=== PATIENT | female | born 2005 | race Caucasian/White ===

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

== ENCOUNTER 2023-02-12 09:25 | Emergency (ER) | payer OTHER, SELFPAY ==
--- NOTE | 2023-02-12 11:21 | PC.NURSE ---
patient left waiting room without seeing a provider. advised to return if needed
== END 2023-02-12 11:30 | disposition left against medical advice (07) ==
LOC: ANHED 11:27
DX: R11.2 Nausea with vomiting, unspecified (principal)
CPT/HCPCS: 99199

== ENCOUNTER 2023-08-08 15:26 | Emergency (ER) | payer OTHER, SELFPAY ==
[2023-08-08 15:44] VITALS: BP 138/84; PULSE 96; RESP 16; TEMP 36.6; O2SAT 100
--- NOTE | 2023-08-08 16:15 | ED.FEMALEGU ---
HPI - Female Genitourinary General Chief complaint: Urogenital-Female Stated complaint: Left side back pain Time Seen by Provider: 08/08/23 16:10 Source: patient and RN notes reviewed Mode of arrival: ambulatory Limitations: no limitations History of Present Illness HPI Narrative: Patient presents today complaining of a 2 day history of dysuria, frequency, and voiding small amounts, with left flank pain that started this morning. No [id number] treatment prior to arrival. Related Data Home Medications Medication Instructions Recorded Confirmed sertraline 50 mg tablet 50 mg PO DIRECTED 08/08/23 08/08/23 Allergies Allergy/AdvReac Type Severity Reaction Status Date / Time latex Allergy Unknown Verified 08/08/23 15:40 BLUE CHEESE Allergy Mild RED FACE Uncoded 08/08/23 15:40 Review of Systems Review of Systems: CONSTITUTIONAL: Denies body aches, fever, chills, or sweats. EYES: Denies visual changes, redness, or discharge. ENT: Denies rhinorrhea, congestion, sore throat, or otalgia. CARDIOVASCULAR: Denies chest pain, palpitations, or edema. RESPIRATORY: Denies cough or dyspnea. GASTROINTESTINAL: Denies abdominal pain, nausea, vomiting, or diarrhea. GENITOURINARY: + dysuria, frequency, voiding small amounts, left flank pain SKIN: Denies rash, itching, or wounds. MUSCULOSKELETAL: Denies back pain, joint pain, or myalgia. NEUROLOGIC: Denies headache, numbness, tingling, or weakness. PSYCH: Denies depression or anxiety. [facility] Past Medical History Medical History Migraine Surgical History Surgical History Hx of tonsillectomy Social History Social History Smoking status: Never smoker Second hand tobacco smoke exposure: No Alcohol intake: never Substance use: never Gender identity (if verbalized by the patient): Female Spiritual care concerns: No Comments At time of signature, I have reviewed and agree with nursing past medical, surgical, social and family history unless otherwise noted. Please see nursing chart for further information. There is no relevant family history pertinent to the presenting complaint Exam Narrative: GENERAL: Well-appearing, well-nourished, and in no acute distress. HEAD: Normocephalic, atraumatic. EYES: EOMI. No redness or drainage. Conjunctivae normal. ENT: Mucous membranes pink and moist. NECK: Normal AROM. CHEST: No respiratory distress. Clear to auscultation. HEART: Regular rate and rhythm. No murmur appreciated. Normal peripheral pulses. ABDOMEN: Soft, nontender, nondistended, normal active bowel sounds. + mild left CVAT EXTREMITIES: Normal range of motion. No edema. SKIN: Warm, dry, no rash. Capillary refill normal. Normal skin turgor. NEURO: No focal deficits. Alert and oriented x3. Gait steady. PSYCH: Normal affect. No signs of depression or anxiety. Course Course Level of Care: Express Care Visit Vital Signs Vital signs: Vital Signs Temperature 97.8 F 08/08/23 15:44 Pulse Rate 96 08/08/23 15:44 Respiratory Rate 16 08/08/23 15:44 Blood Pressure 138/84 08/08/23 15:44 Pulse Oximetry 100 08/08/23 15:44 Oxygen Delivery Room Air 08/08/23 15:44 Temperature 97.8 F 08/08/23 15:44 Pulse Rate 96 08/08/23 15:44 Respiratory Rate 16 08/08/23 15:44 Blood Pressure 138/84 08/08/23 15:44 Pulse Oximetry 100 08/08/23 15:44 Oxygen Delivery Room Air 08/08/23 15:44 Reviewed MDM - Female Genitourinary MDM Narrative Medical decision making narrative: Urinalysis is consistent with UTI. Prescription for Cipro sent pharmacy. Anticipatory guidance given. Differential Diagnosis Differential diagnosis: Likely urinary tract infection, vaginitis, cystitis and other (Pyelonephritis) Lab Data Attestation: I reviewed the patient's l
== END 2023-08-08 16:30 | disposition home or self-care (01) ==
PROVIDERS: Emergency Provider Nurse Practitioner
DX: N12 Tubulo-interstitial nephritis, not specified as acute or chronic (principal); Z86.16 Personal history of COVID-19
CPT/HCPCS: 81003; 87077; 87086; 87088; 87186; 99213; G0463

== ENCOUNTER 2024-10-26 19:06 | Emergency (ER) | payer OTHER, SELFPAY ==
--- NOTE | ~2024-10-26 | XR_ITS ---
HISTORY: lateral and posterior heel pain times 10 days COMPARISON: None TECHNIQUE: 3 views of the right foot were performed FINDINGS: No acute fracture or dislocation is appreciated. No significant degenerative disease is noted. The base of the fifth metatarsal is intact. No calcaneal spur is noted. Plantar soft tissue swelling is present within the hindfoot. IMPRESSION: Soft tissue swelling, without acute fracture. No radiopaque foreign body. Reviewed, dictated and finalized at location A.
[2024-10-26 19:14] VITALS: BP 136/78; PULSE 90; RESP 20; TEMP 36.7; O2SAT 100
--- NOTE | 2024-10-26 19:14 | ED.LOWEXIN ---
HPI - Extremity Injury (Lower) General Chief Complaint: Extremity Problem,Nontraumatic Stated Complaint: right foot injury Time Seen by Provider: 10/26/24 19:14 Source: patient, RN notes reviewed and old records reviewed Mode of arrival: ambulatory Limitations: no limitations History of Present Illness HPI Narrative: 19-year-old female presents to the [facility] with right foot pain for approximately 10-14 days. Unknown injury. Currently wearing Crocs. States that she started working in June, is on her feet more often. Related Data Home Medications ?Medication ?Instructions ?Recorded ?Confirmed ?Last Taken ?Type sertraline 50 mg tablet 50 mg PO DIRECTED 08/08/23 08/08/23 Unknown History buspirone 5 mg tablet mg 10/26/24 Unknown History Allergies Allergy/AdvReac Type Severity Reaction Status Date / Time latex Allergy Rash Verified 10/26/24 19:20 BLUE CHEESE Allergy Mild RED FACE Uncoded 10/26/24 19:20 Review of Systems Review of Systems: All systems reviewed & are unremarkable except as noted in HPI and below Constitutional: Constitutional: Reports no additional constitutional complaints ENT: Reports system reviewed and no additional complaints, except as documented Cardiovascular: Cardiovascular: Reports no additional cardiovascular complaints, Denies chest pain and Denies dyspnea Respiratory: Respiratory: Reports no additional respiratory complaints, Denies chest congestion, Denies cough and Denies dyspnea Musculoskeletal: Musculoskeletal: Reports no additional musculoskeletal complaints Integumentary/Breasts: Skin/Breast: Reports system reviewed and no additional complaints, except as docu PMFSH Past Medical History Medical History Migraine Surgical History Surgical History Hx of tonsillectomy Social History Social History Smoking status: Never smoker Second hand tobacco smoke exposure: No Alcohol intake: never Substance use: never Gender identity (if verbalized by the patient): Female Spiritual care concerns: No Comments At the time of my signature, I reviewed and agree with the nursing past medical, surgical, social, and family history. There is no relevant family history pertinent to the patient complaint. Exam Const: General: cooperative, healthy appearing, comfortable, no acute distress, well developed, alert and well nourished Nutritional Appearance: well nourished Orientation/consciousness: patient oriented x3 Limitations: no limitations HENMT: Head: normal to inspection Eyes: General: appearance normal, both eyes and all related structures Alignment and Position: alignment normal Neck: Neck: normal visual inspection, full ROM, no lymphadenopathy and no meningeal signs Chest: Chest palpation & inspection: normal inspection of the chest Resp: Effort & Inspection: normal respiratory effort and able to speak in complete sentences Auscultation: clear to auscultation bilaterally, no crackles, no rales, no rhonchi and no wheezes Cardio: Rate: regular rate Skin: General skin exam: normal color and no rashes or lesions noted Neuro: General: patient oriented x3, gait normal, moves all extremities and no meningeal signs Cognition (Neuro): normal cognition Speech: normal speech Gait exam (Neuro): Normal gait present Extrem: General: normal to inspection, full ROM, capillary refill normal and normal gait Right lower extremity: normal to inspection and foot Details: tenderness Location: of the calcaneus and of the lateral foot, no edema and vascular exam Details: dorsalis pedis pulse present and normal capillary refill; no abrasion, no laceration and no ecchymosis Psych: Appearance: grossly normal and well kempt Mental Status: mental status grossly normal Speech and movement: Normal speech and movement present and Clear speech present Affect: normal affect Attitude: cooperative Course Course Level of Care: Express Care Visit Vital Signs Vital signs: Vital Signs Temperature 98.0 F 10/26/24 19:14 Pulse Rate 90 10/26/24 19:14 Respiratory Rate 10/26/24 19:14 Blood Pressure 136/78 10/26/24 19:14 Pulse Oximetry 100 10/26/24 19:14 Oxygen Delivery Room Air 10/26/24 19:14 Temperature 98.0 F 10/26/24 19:14 Pulse Rate 90 10/26/24 19:14 Respiratory Rate 10/26/24 19:14 Blood Pressure 136/78 10/26/24 19:14 Pulse Oximetry 100 10/26/24 19:14 Oxygen Delivery Room Air 10/26/24 19:14 Reviewed MDM - Extremity Injury (Lower) MDM Narrative Medical decision making narrative: Patient presents with 10 day history of foot pain, no known injury. Patient's x-ray shows no acute findings Patient appropriate for outpatient treatment with close follow-up Discharge instructions reviewed with patient, as well as provided in writing per nursing staff. The instructions also include specific and strict return/GO TO THE ER as well as f/u information. All questions have been answered, and the patient deny any further questions with discharge and discharge plan. Some parts of this dictation were generated by voice recognition software and may contain typographical and/or grammatical inaccuracies. Differential Diagnosis Differential diagnosis: Likely ankle sprain and strain and other (Foot contusion, foot fracture, foot sprain) Imaging Data Radiologist's impression: HISTORY: lateral and posterior heel pain times 10 days COMPARISON: None TECHNIQUE: 3 views of the right foot were performed FINDINGS: No acute fracture or dislocation is appreciated. No significant degenerative disease is noted. The base of the fifth metatarsal is intact. No calcaneal spur is noted. Plantar soft tissue swelling is present within the hindfoot. IMPRESSION: Soft tissue swelling, without acute fracture. No radiopaque foreign body. Critical Care Time Critical Care Time Critical Care Time: No Discharge Plan Discharge Clinical Impression: Acute foot pain Patient Disposition: Home Condition: Stable Instructions: Antibiotic Form, Foot Sprain (ED), Arthralgia (ED) Additional Instructions: Your Xray did not show a fracture. Wear good supportive shoes at all times. Ice should be applied to help reduce swelling. It can be used for 20 to 30 minutes, every 2-3 hours while awake. Do not apply ice directly to your skin. You can alternate ibuprofen 600mg and Tylenol 650mg every 4 hours as needed for pain Please schedule a follow-up visit with your personal physician for further evaluation and treatment within 2 weeks especially if symptoms persist. For new or worsening symptoms go directly to the emergency room Patient Language: Pashto Prescriptions: No Action sertraline 50 mg tablet 50 mg PO DIRECTED buspirone 5 mg tablet Follow-up/Referrals: Sheri,Sunday Victor MD [Primary Care Provider] - 1 Week ([facility] follow-up, foot pain) Stand Alone Forms: Work/School Release IP Time of Disposition: 20:17
== END 2024-10-26 20:21 | disposition home or self-care (01) ==
PROVIDERS: Emergency Provider Nurse Practitioner; PCP Family Medicine
DX: M79.671 Pain in right foot (principal)
CPT/HCPCS: 73630; 99213; G0463

== ENCOUNTER 2024-12-31 09:45 | Emergency (ER) | payer OTHER, SELFPAY ==
--- NOTE | ~2024-12-31 | XR_ITS ---
Examination: XR ankle RT min 3V Clinical History: injury, rolled ankle Comparison: Right foot 10/26/2024 Technique: 4 views right ankle Findings/impression: 1. No fracture or dislocation. Reviewed, dictated and finalized at location R.
--- NOTE | 2024-12-31 09:52 | ED_ITS ---
HPI - Extremity Injury (Lower) General Chief Complaint: Extremity Injury, Lower Stated Complaint: Right Foot Pain Time Seen by Provider: 12/31/24 09:52 Source: patient Mode of arrival: ambulatory Limitations: no limitations History of Present Illness HPI Narrative: Patient is a 19-year-old female who presents with right ankle pain after stepping off of running board and rolling ankle outward. Patient had same in [facility] and was seen at this facility 10/26. Denies any bruising or swelling. Has taken Tylenol and ibuprofen. Related Data Home Medications ?Medication ?Instructions ?Recorded ?Confirmed ?Last Taken ?Type sertraline 50 mg tablet 50 mg PO DIRECTED 4 08/08/23 Unknown History buspirone 5 mg tablet mg 10/26/24 Unknown History Allergies Allergy/AdvReac Type Severity Reaction Status Date / Time latex Allergy Rash Verified 12/31/24 09:56 BLUE CHEESE Allergy Mild RED FACE Uncoded 10/26/24 19:20 Review of Systems Review of Systems: All systems reviewed & are unremarkable except as noted in HPI and below Constitutional: Constitutional: Denies body ache(s), Denies chills, Denies fatigue, Denies fever(s), Denies headache(s), Denies malaise and Denies weakness Eyes: Eyes: Denies blurry vision, Denies irritation and Denies loss of vision ENT: Denies otalgia, Denies headache(s), Denies nasal discharge, Denies sinus pain and Denies sore throat Cardiovascular: Cardiovascular: Denies chest pain, Denies irregular heart r hythm and Denies dyspnea Respiratory: Respiratory: Denies dyspnea Gastrointestinal: Gastrointestinal: Denies abdominal pain, Denies melena, Denies hematochezia, Denies diarrhea, Denies nausea and Denies vomiting Musculoskeletal: Musculoskeletal: Denies back pain, Denies myalgias and Reports arthralgias Integumentary/Breasts: Skin/Breast: Denies pruritus and Denies rash Neurologic: Denies headache(s), Denies loss of vision and Denies weakness Psychiatric: Psychiatric: Reports no additional psychiatric complaints Endocrine: Endocrine: Denies fatigue PMFSH Past Medical History Medical History Migraine Surgical History Surgical History Hx of tonsillectomy Social History Social History Smoking status: Never smoker Second hand tobacco smoke exposure: No Alcohol intake: never Substance use: never Gender identity (if verbalized by the patient): Female Spiritual care concerns: No Comments At time of signature, agree with nursing past medical, surgical, social and family history. There is no relevant family history pertinent to the presenting complaint. Exam Const: General: cooperative, healthy appearing, comfortable, no acute distress and well nourished Nutritional Appearance: well nourished Orientation/consciousness: patient oriented x3 Limitations: no limitations HENMT: Head: normal to inspection, normocephalic and atraumatic Ears: hearing grossly normal bilaterally and external ears normal Face/Nose/Sinus: Normal external nose present, normal facial exam and face symmetric Face and sinus: normal facial exam and face symmetric Mouth: Yes lip normal Eyes: General: appearance normal, both eyes and all related structures Alignment and Position: alignment normal and position normal Periorbital: periorbital findings normal Eyelids: eyelids normal Pupils: Equal, round and reactive pupils present EOM: EOMs intact bilaterally Neck: Neck: normal visual inspection, full ROM and supple Chest: Chest palpation & inspection: normal inspection of the chest Resp: Effort & Inspection: normal respiratory effort and able to speak in complete sentences Auscultation: clear to auscultation bilaterally Cardio: Rate: regular rate Rhythm: regular rhythm Heart sounds: S1 normal heart sound present and S2 normal heart sound present GI: Inspection: normal to inspection Skin: General skin exam: normal color and no rashes or lesions noted Neuro: General: patient oriented x3 and moves all extremities Cranial nerves: Yes Equal, round and reactive pupils present Speech: normal speech Gait exam (Neuro): Normal gait present Extrem: General: normal to inspection, full ROM and no edema Right lower extremity: lower leg Details: normal to inspection and no edema; no tenderness, ankle Details: normal to inspection, tenderness Location: of the lateral malleolus and normal ROM; no swelling, no ecchymosis and achilles tendon exam normal and foot Details: normal capillary refill, normal to inspection and toes with normal ROM; no tenderness Psych: Appearance: grossly normal and well kempt Mental Status: mental status grossly normal Speech and movement: Normal speech and movement present Affect: normal affect Attitude: cooperative Thought process: Normal thought process present Course Course Emergency Course: Patient is aware of diagnosis, understands and agrees to treatment plan. Anticipatory guidance given. Patient agrees to follow-up as directed and is aware of reasons to seek care at the emergency department. Portions of this record may have been created with voice recognition software Level of Care: Express Care Visit Vital Signs Vital signs: Reviewed MDM - Extremity Injury (Lower) MDM Narrative Medical decision making narrative: Patient is able to bear weight and ambulate with pain. No surface of trauma or obvious effusion. No overlying erythema or warmth. The R ankle is without obvious asymmetry or deformity when comparing to the L. Patient has mild pain with dorsiflexion, plantar flexion, eversion, and inversion. Tenderness to lateral ankle on palpation. Motor and neurovascular status intact. Andrea wrap applied Pt well hydrated appearing, in no respiratory distress, hemodynamically stable. Recommend supportive care. The patient is stable at time of discharge the clinical impression was discussed and the patient was given the opportunity to ask questions, which were addressed as completely as possible given the information available at present. Anticipatory guidance and return to care precautions were discussed and the importance of primary care follow-up was stressed and encouraged. The patient voiced understanding of the plan, indications to return, and the need for follow-up. Exam findings show no acute concerns or changes Patient is appropriate for outpatient treatment and follow-up. Differential Diagnosis Differential diagnosis: Likely ankle sprain and strain and ankle fracture Medical Records Attestation: I reviewed the patient's medical records. Imaging Data Radiologist's impression: Examination: XR ankle RT min 3V Clinical History: injury, rolled ankle Comparison: Right foot 10/26/2024 Technique: 4 views right ankle Findings/impression: 1. No fracture or dislocation. Reviewed, dictated and finalized at location R. Discharge Plan Discharge Clinical Impression: Ankle sprain and strain Patient Disposition: Home Condition: Stable Instructions: Ankle Sprain (ED) Additional Instructions: Xray showed no fracture. Minimize activities that aggravate the condition The RICE protocol. Follow the RICE protocol as soon as possible after your injury: Rest your ankle by not walking on it. Ice should be immediately applied to keep the swelling down. It can be used for 20 to 30 minutes, three or four times daily. Do not apply ice directly to your skin. Compression dressings, bandages or andrea-wraps will immobilize and support your injured ankle. Elevate your ankle above the level of your heart as often as possible during the first 48 hours. Medication: Nonsteroidal anti-inflammatory drugs (NSAIDs) such as ibuprofen and naproxen can help control pain and swelling. Because they improve function by both reducing swelling and controlling pain, they are a better option for mild sprains than narcotic pain medicines. Please schedule a follow-up visit with your personal physician for further evaluation and treatment within 1week OR If your symptoms persist, change or worsen significantly before you can contact your personal physician then please, without delay, go to the emergency department for further evaluation. Patient Language: [place] Prescriptions: No Action sertraline 50 mg tablet 50 mg PO DIRECTED buspirone 5 mg tablet Follow-up/Referrals: Sheri,Sunday Victor MD [Primary Care Provider, Unknown] - 3 Days Time of Disposition: 10:51
[2024-12-31 09:53] VITALS: BP 125/80; PULSE 93; RESP 18; TEMP 36.3; O2SAT 99
== END 2024-12-31 11:00 | disposition home or self-care (01) ==
PROVIDERS: Emergency Provider Nurse Practitioner Family; PCP Family Medicine
DX: S93.401A Sprain of unspecified ligament of right ankle, initial encounter (principal); S96.911A Strain of unspecified muscle and tendon at ankle and foot level, right foot, initial encounter; X50.9XXA Other and unspecified overexertion or strenuous movements or postures, initial encounter
CPT/HCPCS: 73610; 99213; G0463